=== PATIENT | female | born 1980 | race Caucasian/White ===

== ENCOUNTER → 2016-10-05 | Day surgery (SDC) | payer BC ==
[~2016-10-05] MED LIST: FLU VACC QS 2016-17(3-64YR)/PF 0.5 ML SYR (FLUARIX QUAD) IM ONE; KETOROLAC 30 MG/1 ML SDV ONE; PROPOFOL 200 MG/20 ML VIAL ONE; fentaNYL 100 MCG/2 ML INJ ONE
--- NOTE | 2016-10-05 11:19 | GOP ---
[f rep st] OPERATIVE REPORT DATE OF OPERATION: 10/05/2016 SURGEON: Alee Sarkar MD SPECIAL DELIVERY MESSENGER: None. ANESTHESIA: Sedation. PREOPERATIVE DIAGNOSIS: Missed at 6 weeks. POSTOPERATIVE DIAGNOSIS: Missed at 6 weeks. PROCEDURE PERFORMED: Suction, dilation and curettage. FINDINGS: Missed at 6 weeks gestation. ESTIMATED BLOOD LOSS: Less than 10 mL. INDICATIONS: The patient is a 36-year-old female who was noted to have a missed at 6 weeks gestation and desires surgical management. DESCRIPTION OF PROCEDURE: The patient was taken to the operating room where she was prepped and draped in normal sterile fashion in the high dorsal lithotomy position. A surgical time-out was performed verifying the patient's name, date of , planned procedure and site. A bivalve speculum was placed in the patient's vagina. The anterior aspect of the cervix was grasped with a single-tooth tenaculum. The patient received a paracervical block of 2% lidocaine of 10 mL. The cervix was dilated to 7 mm. A curved suction curette of 7 mm was placed into the uterine cavity. Uterine contents were aspirated until the uterus was noted to be clamping down. Sharp curettage took place to ensure there was no retained products of conception until a gritty endometrial texture was noted. Suction curette was placed into the uterine cavity 1 additional time and no further products of conception were obtained. The single -tooth tenaculum was removed. The bivalve speculum was removed. Hemostasis was obtained. The patient tolerated the procedure well and stable to recovery room. COMPLICATIONS: None. OUTCOME: Stable to recovery room. /[id number]/MODL MTDD
== END | disposition home or self-care (01) ==
LOC: FOBOP 07:48
PROVIDERS: ATTEND Obstetrics & Gynecology
PROC: 10D17ZZ Extraction of Products of Conception, Retained, Via Natural or Artificial Opening (ICD-10-PCS; principal; 2016-10-05)
DX: O02.1 Missed abortion (principal)
CPT/HCPCS: J1885; J2704; J3010

== ENCOUNTER → 2016-11-02 | Outpatient (CLI) | payer BC ==
--- NOTE | 2016-11-02 15:17 | CPEEG ---
[f rep st] ELECTROENCEPHALOGRAM DATE OF STUDY: 11/02/2016 INTERPRETATION: Normal EEG during wakefulness and sleep. There were no potentially epileptogenic ab normalities present during the recording. REPORT: This EEG contains 10 Hz alpha to the posterior head regions. There was no abnormal activati on at rest, during photic stimulation, or hyperventilation. The patient became drowsy and fell aslee p during the study. There was no abnormal activation during drowsiness, sleep, or during times of ar ousal. /[id number]/MODL
== END ==
LOC: FCPNEURO 08:50
PROVIDERS: ATTEND Psychiatry & Neurology Neurology
DX: R29.818 Other symptoms and signs involving the nervous system (principal)

== ENCOUNTER → 2017-11-09 | Outpatient (CLI) | payer BC | LOC: FLACT 10:11 | PROVIDERS: ATTEND Obstetrics & Gynecology | DX: O92.13 Cracked nipple associated with lactation (principal) | CPT/HCPCS: G0463 ==

== ENCOUNTER → 2017-12-07 | Outpatient (CLI) | payer BC | LOC: FLACT 10:00 | PROVIDERS: ATTEND Obstetrics & Gynecology | DX: Z39.1 Encounter for care and examination of lactating mother (principal) | CPT/HCPCS: G0463 ==

== ENCOUNTER → 2018-12-19 | Outpatient (CLI) | payer BC | LOC: FIMAGING 11:29 | PROVIDERS: ATTEND Obstetrics & Gynecology | DX: O09.522 Supervision of elderly multigravida, second trimester (principal); O26.22 Pregnancy care for patient with recurrent pregnancy loss, second trimester; Z3A.19 19 weeks gestation of pregnancy ==

== ENCOUNTER → 2019-03-20 | Outpatient (CLI) | payer BC | LOC: FIMAGING 13:43 ==